=== PATIENT | male | born 1970 | race Hispanic/Latino ===

== ENCOUNTER 2022-08-08 13:09 | Outpatient (CLI) | payer SELFPAY ==
[~2022-08-08 13:09] MED LIST: Magnevist 469MG/ML 20 ML VIAL ONE
== END 2022-08-08 13:10 | disposition home or self-care (01) ==
LOC: CSHMRI 13:09
PROVIDERS: ATTEND Surgery
DX: R19.09 Other intra-abdominal and pelvic swelling, mass and lump (principal); K68.9 Other disorders of retroperitoneum
CPT/HCPCS: 74183